=== PATIENT | female | born 1965 | race African-American/Black ===

== ENCOUNTER 2020-01-14 22:25 | Emergency (ER) | payer OTHER ==
[~2020-01-14] VITALS: Ht 154.9 cm; Wt 63.5 kg
[~2020-01-14 22:25] MED LIST: DOXYCYCLINE 10100 M1 PO; FLEXERIL PO; KEFLEX500 M1 PO; MEDROLDOSEPACK PO; MORPHINE SULFAT15 M3 PO; NORCO 5-325 TA1 EACH PO; NORCO 7.5-3251 EACH PO
[2020-01-14 23:45] LABS: ABSOLUTE NEUTROPHILS 3.1 thou/uL (1.4-8.2); BASOPHILS 0.7 % (0.0-2.0); EOSINOPHILS 2.4 % (0.0-3.0); HEMATOCRIT 41.9 % (37.0-47.0); HEMOGLOBIN 14.1 gm/dL (12.0-15.0); LYMPHOCYTES 35.9 % (24.0-44.0); MCH 26.2 pg (26.0-34.0); MCHC 33.6 g/dL (28.0-37.0); MCV 78.1 fL (80.0-100.0); MONOCYTES 10.5 % (1.0-8.0); PLATELET COUNT 255 thou/uL (150-400); POLYS 50.5 % (36.0-66.0); RBC 5.36 mil/uL (4.20-5.00); RDW 19.9 % (10.5-14.5); WBC 6.2 thou/uL (4.0-11.0)
[2020-01-14 23:54] LABS: ANION GAP 10 mmol/L (7-16); BUN 6 mg/dL (7-18); CALCIUM 9.3 mg/dL (8.5-10.1); CHLORIDE 100 mmol/L (98-107); CO2 26 mmol/L (21-32); CREATININE 0.6 mg/dL (0.6-1.0); GLUCOSE 128 mg/dL (74-106); SODIUM 136 mmol/L (136-145)
[2020-01-15 00:04] LABS: ALBUMIN 4.1 g/dL (3.4-5.0); LIPASE 200 U/L (73-393); SGOT 25 U/L (15-37); SGPT 33 U/L (30-65); TOTAL BILIRUBIN 0.7 mg/dL (0.2-1.0); TROPONIN-I <0.06 ng/mL (<0.06)
[2020-01-15] MEDS ORDERED: PROMETH-CODEIN 65 ML PO (00:19)
[2020-01-15 00:45] VITALS: BP 122/36
--- NOTE | 2020-01-15 07:43 | EKG ---
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: [place] : 1965 Requested By: Abel Morel Order Number: [id number] MD: Noe Leung Measurements Intervals [place] Rate: 118 P: -3 IA: 145 QRS: -29 QRSD: 86 T: 92 QT: 332 QTc: 466 Interpretive Statements Sinus tachycardia Leftward axis Poor R wave progression No previous ECG available for comparison Electronically Signed On 01-15-2020 7:42:38 CDT by Noe Leung [email or web address] <ELECTRONICALLY SIGNED> By: Noe Leung MD, [facility] 01/15/20 [id number] Noe Leung MD, [facility] /EPI
== END 2020-01-15 00:59 | disposition home or self-care (01) ==
LOC: ER 22:25
PROVIDERS: Emergency Medicine
DX: R05 Cough (principal); Z20.828 Contact with and (suspected) exposure to other viral communicable diseases; J44.9 Chronic obstructive pulmonary disease, unspecified; I10 Essential (primary) hypertension; F17.210 Nicotine dependence, cigarettes, uncomplicated; Z79.899 Other long term (current) drug therapy; Z79.2 Long term (current) use of antibiotics

== ENCOUNTER 2021-08-11 17:34 | Emergency (ER) | payer OTHER ==
[~2021-08-11] VITALS: Ht 154.9 cm; Wt 63.5 kg
[~2021-08-11 17:34] MED LIST changes: +PROMETH-CODEIN 65 ML PO
[2021-08-11 17:45] VITALS: BP 103/63
[2021-08-11] MEDS ORDERED: DOXYCYCLINE 10100 MG PO (18:55)
--- NOTE | 2021-08-12 08:44 | EKG ---
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: : 1965 Requested By: Alex Martinez Order Number: [id number] MD: Gomez Fox Measurements Intervals [place] Rate: 125 P: -22 SC: 116 QRS: -9 QRSD: 88 T: QT: 314 QTc: 453 Interpretive Statements Sinus tachycardia Anterior infarct, old Compared to ECG 01/14/2020 22:58:12 Myocardial infarct finding now present Left-axis deviation no longer present Poor R-wave progression no longer present Electronically Signed On 08-12-2021 8:43:57 [employer] by Gomez Fox [email or web address] <ELECTRONICALLY SIGNED> By: Gomez Fox MD, [facility] 08/12/21 0843 [id number] Gomez Fox MD, FAC /EPI
== END 2021-08-11 21:18 | disposition home or self-care (01) ==
LOC: ER 17:34
DX: R05.9 Cough, unspecified (principal); Z20.822 Contact with and (suspected) exposure to COVID-19; J44.9 Chronic obstructive pulmonary disease, unspecified; F17.210 Nicotine dependence, cigarettes, uncomplicated; Z79.899 Other long term (current) drug therapy